=== PATIENT | male | born 1950 | race Caucasian/White ===

== ENCOUNTER → 2017-09-19 | Outpatient (CLI) | payer OTHER | END | disposition home or self-care (01) | LOC: LAB 09:56 | DX: E87.5 Hyperkalemia (principal) ==

== ENCOUNTER → 2022-03-21 | Outpatient (CLI) | payer OTHER | END | disposition home or self-care (01) | LOC: US 10:30 | PROVIDERS: ATTEND Internal Medicine | DX: N26.1 Atrophy of kidney (terminal) (principal); N28.1 Cyst of kidney, acquired; R80.0 Isolated proteinuria ==